=== PATIENT | female | born 2005 | race Caucasian/White ===

== ENCOUNTER 2025-01-26 12:13 | Emergency (ER) | payer BC, SELFPAY ==
--- NOTE | ~2025-01-26 | US_ITS ---
EXAMINATION: US pelvic complete w TV INDICATION: Ovarian cyst Comparison:No prior studies for comparison. TECHNIQUE: Multiple transabdominal sonographic images of the pelvis performed. Patient refused transvaginal examination FINDINGS: The uterus measures 6.8 x 3.7 x 2.4 cm. The endometrial complex measures 6 mm. The right ovary is obscured by bowel. There is a possible cyst deep in the pelvis, although not well delineated. The left ovary is unremarkable measuring 3 x 2.4 x 1.7 cm. There is no free fluid in the pelvis. There are no abnormal masses seen on either side. IMPRESSION: 1. Possible right ovarian cyst, although this area is obscured by bowel content. Otherwise, unremarkable pelvic ultrasound. Reviewed, dictated and finalized at location O. IMPRESSION: 1. Possible right ovarian cyst, although this area is obscured by bowel content . Otherwise, unremarkable pelvic ultrasound.
--- NOTE | ~2025-01-26 | CT_ITS ---
EXAMINATION: CT abdomen pelvis w con DATE: 01/26/2025 13:39 INDICATION: Abdomen pain with diarrhea TECHNIQUE: Computed tomography (CT) of the abdomen and pelvis was performed with 100 cc Omnipaque 350 intravenous contrast. The dose-length product was 312.82 mGy-cm. Automated exposure control and iterative reconstruction technique were employed. COMPARISON: None. FINDINGS: Lung bases are unremarkable. No significant pleural or pericardial effusion. Heart size normal. The liver, spleen, pancreas, adrenal glands and kidneys are unremarkable. Gallbladder is present. Normal appendix. There is a right adnexal cyst posteriorly measuring 4.1 x 3.7 cm. No free air. IMPRESSION: 1. Right adnexal cyst, possibly ovarian measuring 4.1 cm. Reviewed, dictated and finalized at location O.
[2025-01-26 12:24] VITALS: BP 107/64; PULSE 84; RESP 16; TEMP 36.8; O2SAT 98
--- OUTSIDE RECORDS SUMMARY | 2025-01-26 13:00 | XMS_ITS | Clinical Summary ---
Author Organization [facility] Address [address] [place] [address] Care Team Providers Care Latent Print Examiner Name Role Phone Krystyna Collins MD Primary Care Pro vider Allergies No known active allergies Medications drospirenone-ethi nyl estradioL (Miranda, 28,) 3-0.02 mg per tabletIndications :Encounter for surveillance of other contraceptive Take 1 tablet by mouth daily 84 tablet 4 4 025 Active etonogestreL (NEXPLANON) 68 mg implantIndication s: Contraception by subdermal route Active fluconazole (DIFLUCAN) 150 mg tabletIndications :vulvovaginal yeast Take one 150mg tab PO and repeat in 72 hours X 1 2 tablet 5 Active Additional Information Patient not taking.Reported on 10/09/2024 Active Problems Problem Noted Date Diagnosed Date Vulvar burning 05/15/2024 Assessment & Plan (05/15/2024 11:59 AM DIE MAKER ELECTRONIC): Patient notes significant change of symptoms within the last month Having burning, pain and irritation Denies any changes to vulvar care routine Vaginitis panel collected to rule out infection Also discussed possible use of steroid cream in area for treatment after infection is ruled out Contraceptive surveillance 01/21/2023 Assessment & Plan (04/18/2024 9:05 AM DIE MAKER ELECTRONIC): On both Nexplanon and Miranda Discussed discontinuing one as both as not necessary. Patient likes having periods every month as reassurance, discussed considering taking the nexplanon out. Other option is to stop the OCPs to see what her bleeding is like without them and just on the nexplanon Assessment & Plan (01/21/2023 1:26 PM CDT): On Nexplanon for contraception and Miranda for breakthrough bleeding. Refilled Miranda prescription. 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 Assessment & Plan (05/15/2024 12:01 PM DIE MAKER ELECTRONIC): Discussed anatomy and area of hypertrophy Discussed burning symptoms area separate from area of hypertrophy and therefore patient would likely not benefit from surgical correction Discussed labiaplasty surgery including risks and benefits Discussed if conservative measures did not improve symptoms, surgery is reasonable, but outside of the last month patient is not otherwise bothered by anatomy Offered patient referral to plastic surgery for consultation as well Assessment & Plan (09/08/2022 3:40 PM CDT): - Discussed normal anatomy from her exam last week. - Discussed options for labiaplasty, although this could lead to chronic pain, decreased sensation, etc. - Patient would like to contemplate this Dysuria 09/07/2022 Assessment & Plan (09/08/2022 3:38 PM CDT): - Discussed recommendations for referral to Urology Assessment & Plan (09/07/2022 5:24 PM CDT): - Discussed normal anatomy today on exam. - Reviewed plan for STD testing today - Recent UCx negative and she has had many negative UCx in the past with similar symptoms. - Discussed plan to trial 2 doses of fluconazole due to some erythema around urethra and white discharge. Reviewed trial of application of cocnut oil to the area. - Will have her RTC in 1 week to check in on symptoms. Considering possible IC due to symptoms Nexplanon in place 09/07/2022 Assessment & Plan (09/07/2022 5:25 PM CDT): - Due for removal and replacement 10/2022. - Due to me leaving will have patient RTC earlier for removal and replacement. - Also on OCPs in addition as had irregular bleeding with nexplanon Anemia 06/16/2020 Assessment & Plan (10/21/2021 12:00 PM CDT): - plan to obtain CBC/ferritin today - discussed that helping to see improvement in her labs in the setting of her bleeding becoming less with each cycle. - if ferritin remains low would recommend an iron infusion for patient as she has previously not tolerated oral iron. Assessment & Plan (09/10/2020 9:21 PM CDT): - Ferritin recently 6 on labs from 06/16/20 - Patient taking iron supplementation over last 3 months - Discussed plan to obtain repeat CBC and Iron panel today. Assessment & Plan (06/16/2020 7:18 PM DIE MAKER ELECTRONIC): - Reported history of anemia and feelings of fatigue when on cycle and now with irregular bleeding. - Discussed plan to obtain CBC/Ferritin today. - Reviewed use of oral Iron Irregular menstrual bleeding 06/16/2020 Assessment & Plan (10/21/2021 11:59 AM CDT): - patient was initially seen for irregular bleeding and cramping with her Nexplanon in place. - she is currently on Lutera on top of her Nexplanon and is happy with her bleeding profile - she would like to keep the Nexplanon in place for contraceptive reasons as she is worried about missing pills here and there for the control - discussed recommendation to continue Lutera and Nexplanon at this time. - refill for Lutera sent to pharmacy on file - patient will need a visit for removal and replacement of her Nexplanon in 10/2022. Assessment & Plan (09/10/2020 9:20 PM CDT): - Patient with Nexplanon in place since 11/2019 with irregular bleeding. - She was prescribed LoLo which helped lighten her bleeding and helped with her menstrual cramps, although she would like to have less irregular bleeding. - Reviewed options moving forward including trial of a higher dose of OCP with nexplanon in place, removal of nexplanon and placement/trial of a different form of control. - Patient would like to try a higher dose OCP at this time as she reports that she feels comfortable knowing that the Nexplanon is in place for contraception. - Rx provided for Lutera and patient to RTC in 2 months to evaluate bleeding. Assessment & Plan (06/16/2020 7:22 PM DIE MAKER ELECTRONIC): - Discussed that this is likely due to her nexplanon as cycles were regular before this was placed. - We reviewed a trial of OCPs x 3 months to see if this can help stabilize the endometrium and may help with her dysmenorrhea. - We also reviewed other options for LARCs as she reported she has a hard time remembering to take medication daily and likes that she does not have to worry about getting with her nexplanon in place. - Rx provided for LoLo OCP and Plan to follow-up in 3 months Surgical History Surgery Date Site/Laterality Comments NO PAST SURGERIES Medical History Medical History Date Comments DANIEL (iron deficiency anemia) Family History Medical History Relation Name Comments No Known Problems Father No Known Problems Mother Breast cancer Neg Hx Cervical cancer Neg Hx Colon cancer Neg Hx Ovarian cancer Neg Hx Uterine cancer Neg Hx Relation Name Status Comments Father Mother Social History Tobacco Use Types Packs/Day Years Used Date Smoking Tobacco: Never Smokeless Tobacco: Never Tobacco Cessation:Counseling Given: Not Answered Alcohol Use Standard Drinks/Week Comments Never 0 (1 standard drink = 0.6 oz pur e alcohol) Humiliation, Afraid, Rape, and Kick questionnair e Answer Date Recorded Within the last year, have y ou been afraid of your partner or ex-partner? No 11/15/2019 Within the last year, have y ou been humiliated or emotionally abused in other ways by your partner or ex-partner? No Within the last year, have y ou been kicked, hit, slapped, or otherwise physically hurt by your partner or ex-partner? No 11/15/2019 Within the last year, have y ou been raped or forced to have any kind of sexual activity by your partner or ex-partner? No 11/15/2019 AUDIT-C Answer Date Recorded Q1: How often do you have a drink containing alc ohol? Never 11/15/2019 Average Number of Drinks Not on file 020 Frequency of Binge Drinking Not on file 10/31 Exercise Vital Sign Answer Date Recorde d On average, how many days pe r week do you engage in moderate to strenuous exercise (like a brisk walk)? 0 days 11/15/2019 On average, how many minutes do you engage in exercise at this level? 0 min 11/15/2019 Comments No Sex and Gender Information Value Date Recorded Sex Assigned at Not on file Legal Sex Female 11:29 PM DIE MAKER ELECTRONIC Gender Identity Female 04/12/2024 12:35 PM DIE MAKER ELECTRONIC Sexual Orientation Not on file Obstetrics History Para Term AB IAB SAB Ectopic Multiple Livin g Live Births 0 0 0 0 0 0 0 0 0 0 0 Last Filed Vital Signs Vital Sign Reading Time Taken Comments Blood Pressure 118/74 10/09/2024 9:26 AM CDT Pulse 79 10/09/2024 9:26 AM CDT Temperature - - Respiratory Rate - - Oxygen Saturation 99% 10/09/2024 9:26 AM CDT Inhaled Oxygen Concentration - - Weight 65.1 kg (143 lb 9.6 oz) 10/09/2024 9:26 A M CDT Height 167.6 cm (5' 6) 10/09/2024 9:26 AM CDT Body Mass Index 23.18 10/09/2024 9:26 AM CDT Plan of Treatment Health Maintenance Due Date Last Done Comments Depression Screening 2005 Hepatitis C Screening 2005 HPV Vaccines (1 - 3-dose series) 2018 Meningococcal B Vaccine (1 o f 2 - Standard) 2019 Chlamydia and Gonorrhea (GC/ CT) Screening 09/01/2023 08/31/2022 DTaP/Tdap/Td Vaccine (7 - Td or Tdap) 02/07/2024 02/06/2014, 04/10/2008, 10/22/2004, Additional history exists Influenza Vaccine (#1) 2025 02/06/2009 Cervical Cancer Screening 10/09/2025 10/09/2024 Regular Well Visit/Exam 18-64 10/09/2025 10/09/2024 Hepatitis B Screening Completed 2003 , 2003, 2003, Additional history exists Pneumococcal vaccine <65 Completed 005, 2003, 2003, Additional history exists Varicella Vaccines Completed 04/10/2008, 04/16/2005 Meningococcal Vaccine Completed 01/12/2021, 015 Procedures Procedure Name Priority Date/Time Associated Diagnosis Comments PAP WITH REFLEX TO HIGH RISK HPV Routine 10/09/2024 9:51 AM CDT Screening for cervical cancer Screening for HPV (human papillomavirus) N. GONORRHOEAE/C. TRACHOMATIS AMPLIFICATION Routine 08/31/2022 6:35 PM CDT Screening for STDs (sexually transmitted diseases) from Last 3 Months or Most Recently Relevant to Health Maintenance Results * Pap with reflex to High Risk HPV and Genotyping (Cytology Component) (10/09/2024 9:51 AM CDT) Thin prep (Pap test) 10/09/2024 9:51 AM CDT 10/10/2024 8:24 AM CDT Narrative PATHOLOGY [facility] - 10/12/2024 1:20 PM CDT [facility] results best viewed via link to PDF [address] [address] Tele: Opal Romero MD - [employer] CYTOLOGY REPORT Note to Patients: This report may contain a detailed description of human tissue sent by a health care provider to the laboratory for pathologic evaluation. The content of this report is essential for diagnosis and may provide important critical findings. This information may be unfamiliar to patients to review without a medical professional present. It is advised that the patient review this report in the presence of a health care provider who can answer questions and explain the details. Patient Name: MEGAN LEA Address: [address] [place] [address] Gender: F : 2005 (Age: 19) Service: Location: [facility] : [id number] [facility] #: [id number] Patient Type: [facility] SPECIMEN Taken: 10/09/2024 Reported: 10/12/2024 Physician(s): Debby Castelan MD FINAL DIAGNOSIS: SOURCE OF SPECIMEN - ThinPrep Pap w/ reflex HPV: STATEMENT OF ADEQUACY Source: Cervical/Endocervical - Satisfactory for interpretation - Endocervical /Transformation Zone component present - Case screened using computer assisted imaging technology and manually re- screened by a shank rander. GENERAL CATEGORIZATION: - Negative for intraepithelial lesion or malignancy cad/10/12/2024 13:20Izabela Ellis M.S., MARY GRACE (ASCP) Report Reviewed and Electronically Signed By Izabela Ellis M.S., MARY GRACE (ASCP)Clerical Data Follow A; [id number] CLINICAL DIAGNOSIS AND HISTORY Last Menstrual Period: 09/23/2024 REPORT IMAGES AND/OR SCANNED DOCUMENTS ONLY VIEWABLE IN PDF FORMAT The Pap test is a screening test used to aid in the detection of cervical cancer and its precursors. It should not be the sole means by which malignant and premalignant lesions are diagnosed. Both false negative and false positive results may occur. It also has poor sensitivity for the detection of endometrial lesions and should not be used to evaluate suspected endometrial abnormalities. For these reasons it is most important to obtain Pap tests at regular intervals, as recommended by your physician or nurse practitioner. Frozen section, operating room consultation, gross examination and dissection, and case sign out may have been performed in part or completely in the following laboratories: [facility], [facility], [place], [place] [address] [place] [address], [address] [place] [id number]. us Debby Castelan MD LAB CYTOLOGY ORDERABLES Fi nal Result Performing Organization Address City/[facility]/ZIP Co de Phone Number PATHOLOGY [facility] Laboratory Receiving [address] [place] [address] * N. gonorrhoeae/C. trachomatis Amplification Urine (08/31/2022 6:35 PM CDT) C. trachomatis Not Detected Not Detected [facility] N. gonorrhoeae Not Detected Not Detected [facility] Comment: Testing performed by the [facility]. This assay detects Chlamydia trachomatis and Neisseria gonorrhoeae by nucleic acid amplification testing (NAAT). This test is approved by the [facility] Food and Drug Administration and the performance characteristics have been verified by the laboratory. The performance characteristics of this test have not been evaluated in women or individuals less than 16 years of age. Urine (None) 08/31/2022 6:35 PM CDT 08/31/2022 6:40 PM CDT Richelle Argueta MD LAB MICROBIOLOGY - GENER AL ORDERABLES Final Result Performing Organization Address City/[facility] Co de Phone Number [facility] [address] Department [place] [address] from Last 3 Months or Most Recently Relevant to Health Maintenance Insurance [place] Care Teams Latent Print Examiner Relationship Specialty Start Date End Date Krystyna Collins MD PCP - General 12/11/14
--- OUTSIDE RECORDS SUMMARY | 2025-01-26 13:00 | XMS_ITS | Clinical Summary ---
Author Organization [facility] Address [address] [place] [address] Care Team Providers Care Teleradiologist Name Role Phone Krystyna Collins MD Primary Care Provider [phone] Source Comments [facility],non-owned Affiliates and Associated Physician Practices is amultiple site organization consisting of ambulatory clinics and hospital sitesin [place], [place], [place] and [place]. This disclosure is being madepursuant to the Care Everywhere program and may not contain all information available regarding this patient. Last updated [email or web address].[email or web address] [facility] Allergies No known active allergies Medications * Be aware that medications may not be up to date on this document. Alwaysverify current medications with the patient. levonorgestrel-e thinyl estradiol 0.1-20 MG-MCG tablet Take 1 tablet by mouth once daily 09/10/2020 Active Active Problems Problem Noted Date Diagnosed Date Anemia 06/16/2020 Overview (12/11/2020): Last Assessment & Plan: - Ferritin recently 6 on labs from 06/16/20 - Patient taking iron supplementation over last 3 months - Discussed plan to obtain repeat CBC and Iron panel today. Irregular menstrual bleeding 06/16/2020 Overview (12/11/2020): Last Assessment & Plan: - Patient with Nexplanon in place since [...] RTC in 2 months to evaluate bleeding. Social History Tobacco Use Types Packs/Day Years Used Date Smoking Tobacco: Never Smokeless Tobacco: Never Comments:Non smoking househo ld Comments No Sex and Gender Information Value Date Recorded Sex Assigned at Not on file Legal Sex Female 11:24 AM CDT Gender Identity Not on file Sexual Orientation Not on file Last Filed Vital Signs Vital Sign Reading Time Taken Comments Blood Pressure 108/68 12/11/2020 11:19 AM CDT Pulse 88 12/11/2020 11:19 AM CDT Temperature 37.5 C (99.5 F) 12/11/2020 11:19 AM CDT Respiratory Rate 16 12/11/2020 11:19 AM CDT Oxygen Saturation 99% 11/30/2017 11:09 AM CDT Inhaled Oxygen Concentration - - Weight 61.2 kg (135 lb) 12/11/2020 11:19 AM CDT Height 170.2 cm (5' 7) 12/11/2020 11:19 AM CDT Body Mass Index 21.14 12/11/2020 11:19 AM CDT Plan of Treatment Health Maintenance Due Date Last Done Comments HIV SCREENING 2018 HPV VACCINE (1 - 3-dose series) 2018 CHLAMYDIA/GONORRHEA SCREENING 2019 MENINGOCOCCAL (Group B) VACC INE SHARED DECISION-MAKING (1 of 2 - Standard) 2019 HEPATITIS C SCREENING 03/28/2021 DTAP/TDAP/TD VACCINES (1 - Tdap) 2022 HEPATITIS B VACCINE (1 of 3 - 19+ 3-dose series) 2022 DEPRESSION SCREENING 05/03/2024 COVID-19 VACCINE (1 - 2023-2 5 season) 2025 INFLUENZA VACCINE (#1) 2025 ZOSTER VACCINE (1 of 2) 2053 HIB VACCINE Aged Out No longer eligi ble based on patient's age to complete this topic MENINGOCOCCAL GROUPS A/C/Y/W VACCINE Aged Out No longer eligible b ased on patient's age to complete this topic PNEUMOCOCCAL VACCINE Aged Out No long er eligible based on patient's age to complete this topic Care Teams Teleradiologist Relationship Specialty Start Date End Date Krystyna Collins MD [address] [address] PCP - General Pediatrics 11/30/17
[2025-01-26 13:01] LABS: BEDSIDEPREGUCG Negative (Negative)
[2025-01-26 13:05] LABS: Hematocrit 38.8 % (37.0-47.0); Hemoglobin 12.5 g/dL (12.0-15.0); Immature Granulocyte Percent A 0.2 % (0-0.5); Lymphocytes Absolute Auto 0.45 K/mm3 (0.9-3.2); Mean Corpuscular HGB Conc 32.2 g/dl (32-36); Mean Corpuscular Hemoglobin 27.2 pg (26-34); Mean Corpuscular Volume 84.5 fl (80-100); Nucleated Red Blood Cells Absolute Auto 0.000 K/mm3 (0.0-0.012); Nucleated Red Blood Cells Perc 0.0 % (0.0-0.2); Platelet Count Result 205 k/mm3 (150-375); Red Blood Count 4.59 M/mm3 (4.2-5.4); White Blood Count 10.5 K/mm3 (4.5-10.0)
--- NOTE | 2025-01-26 13:10 | ECG_ITS ---
Test Date: 2025-01-26 13:24:28 Measurements Intervals Ona Rate: 84 P: 52 AK: 153 QRS: 60 QRSD: 94 T: 33 QT: 346 QTc: 411 Interpretive Statements SINUS RHYTHM POSSIBLE RIGHT VENTRICULAR CONDUCTION DELAY [RSR (QR) IN V1/V2] No previous ECG available for comparison Electronically Signed On 01-26-2025 20:05:12 CDT by Frannie Loco M.D.
[2025-01-26 13:11] LABS: Add Urine Microscopic? YES; Appearance Urine Cloudy (Clear); Glucose Urine UA Negative (Negative); Leukocyte Esterase Ur 2+ LEU/UL (Negative); Nitrate Urine Negative (Negative); Specific Grav Ur 1.027 (1.001-1.035)
--- NOTE | 2025-01-26 13:11 | ED_ITS ---
HPI - Abdominal Pain General Chief Complaint: Abdominal Pain Stated Complaint: Syncope Time Seen by Provider: 01/26/25 12:42 Source: patient Mode of arrival: EMS Limitations: no limitations History of Present Illness HPI narrative: This is a 19-year-old female that presents to the emergency department for lower abdominal pain. Reports associated vomiting and diarrhea. She reports while she was getting her hair cut today she started to feel lightheaded and passed out. Denies chest pain, shortness of breath, palpitations, dysuria, hematuria. Related Data Allergies Allergy/AdvReac Type Severity Reaction Status Date / Time No Known Allergies Allergy Verified 01/26/25 12:27 Review of Systems 2 Review of Systems: All systems reviewed & are unremarkable except as noted in HPI and below PMFSH Past Medical History Medical History (Updated 01/26/25 @ 16:14 by Dyana Frey PA-C) No active medical problems Exam 2 Narrative: GENERAL: Well-appearing, well-nourished, and in no acute distress. HEAD: Normocephalic, atraumatic. EYES: EOMI. CHEST: Clear to auscultation. No respiratory distress. No wheezes rales or rhonchi HEART: Regular rate and rhythm. No murmur heard. Normal peripheral pulses. ABDOMEN: Soft, nontender, nondistended, normal active bowel sounds. No CVA tenderness EXTREMITIES: Normal range of motion. No edema. SKIN: Warm, dry, no rash. NEURO: No focal deficits. Alert and oriented x3. PSYCH: Normal mood and affect Course Course Emergency Course: patient and family updated on workup. Will send oral antibiotic to the pharmacy if any urinary symptoms develop, or await culture results. patient is refusing transvaginal ultrasound at this time for further evaluation of her ovarian cyst. Reports she would feel more comfortable getting this done with her senior software development engineer Vital Signs Vital signs: Vital Signs Temperature 98.2 F 01/26/25 12:24 Pulse Rate 84 01/26/25 12:24 Respiratory Rate 16 01/26/25 12:24 Blood Pressure 107/64 01/26/25 12:24 Pulse Oximetry 98 01/26/25 12:24 Temperature 98.2 F 01/26/25 12:24 Pulse Rate 84 01/26/25 12:24 Respiratory Rate 16 01/26/25 12:24 Blood Pressure 107/64 01/26/25 12:24 Pulse Oximetry 98 01/26/25 12:24 MDM - Abdominal Pain MDM Narrative Medical decision making narrative: Patient presents to the emergency department for lower abdominal pain, diarrhea. Also reporting a syncopal episode while getting her hair cut. She is afebrile and nontoxic appearing. Her vitals are stable. CBC with mild leukocytosis to 10.5. Metabolic panel without concerning findings. Urine with 21-50 white blood cells, also squamous epithelial cells. Patient does not any urinary symptoms. This is sent for culture. CT abdomen and pelvis showing a right adnexal cyst, possibly ovarian, 4.1 cm. Pelvic ultrasound obtained for further evaluation, unable to see ovarian cyst as patient refused transvaginal ultrasound. Reports she would feel more comfortable getting this done with her senior software development engineer. I do have low suspicion for ovarian torsion at this time as patient is quite comfortable. [place] syncope risk score very low risk. Instructed to have close follow up with her senior software development engineer. She was given warnings to return to the ER Differential Diagnosis Differential diagnosis: Likely acute appendicitis, calculus of kidney, gastroenteritis and other (UTI, ovarian cyst, ovarian torsion) Lab Data Attestation: I reviewed the patient's lab results. 01/26/25 12:57 01/26/25 12:57 Labs: Lab Results 01/26/25 01/26/25 Range/Units 12:57 12:59 WBC 10.5 H (4.5-10.0) K/mm3 RBC 4.59 (4.2-5.4) M/mm3 Hgb 12.5 (12.0-15.0) g/dL Hct 38.8 (37.0-47.0) % MCV 84.5 (80-100) fl MCH 27.2 (26-34) pg MCHC 32.2 (32-36) g/dl RDW 13.2 (11.5-14.5) % Plt Count 205 (150-375) k/mm3 MPV 10.3 (7.4-10.4) fl Immature Gran % (Auto) 0.2 (0-0.5) % Neut % (Auto) 91.4 H (45.5-73.1) % Lymph % (Auto) 4.3 L (18.3-44.2) % [place] % (Auto) 3.7 (2.6-8.5) % Eos % (Auto) 0.2 (0-4.4) % Baso % (Auto) 0.2 (0.2-1.2) % Lymph # (Auto) 0.45 L (0.9-3.2) K/mm3 Stokes # (Auto) 0.4 (0.1-0.6) K/mm3 Eos # (Auto) 0.0 (0-0.3) K/mm3 Baso # (Auto) 0.0 (0.0-0.1) K/mm3 Abs Immat Gran (auto) 0.02 (0.00-0.031) K/mm3 Absolute Neuts (auto) 9.6 H (1.3-6.7) K/mm3 Absolute Nucleated RBC 0.000 (0.0-0.012) K/mm3 Nucleated RBC % 0.0 (0.0-0.2) % Sodium 134 L (137-145) mmol/L Potassium 3.8 (3.4-5.0) mmol/L Chloride 105 (98-107) mmol/L Carbon Dioxide 20 L (22-30) mmol/L Anion Gap 9 (4-12) mmol/L BUN 17 (7-17) mg/dL Creatinine 0.96 (0.7-1.0) mg/dL Estim Creat Clear Calc 76 ml/min Estimated GFR > 60 (59 - ) Glucose 105 (65-110) mg/dL Calcium 8.9 (8.4-10.2) mg/dL Total Bilirubin 1.0 (0.2-1.3) mg/dL AST 19 (14-36) U/L ALT 10 (6-35) U/L Alkaline Phosphatase 53 (38-126) U/L Troponin I < 0.012 (0.000-0.034) ng/mL Total Protein 7.9 (6.3-8.2) g/dL Albumin 4.4 (3.5-5.1) g/dL Lipase 92 (23-300) U/L Urine Color Yellow (Yellow) Urine Appearance Cloudy H (Clear) Urine pH 7.0 (5.0-9.0) Ur Specific [place] 1.027 (1.001-1.035) Urine Protein 1+ H (Negative) mg/dL Urine Glucose (UA) Negative (Negative) mg/dL Urine Ketones Trace H (Negative) mg/dL Ur Blood (Man) Negative (Negative) Urine Nitrate Negative (Negative) Urine Bilirubin Negative (Negative) Urine Urobilinogen 1.0 (<2.0) mg/dL Leukocyte Esterase Rfl 2+ H (Negative) TERRA/UL Urine RBC 0-2 (0-2) /hpf Urine WBC 21-50 H (0-3) /hpf Ur Squamous Epith Cells Occasional (Few) /hpf Urine Bacteria 2+ H /hpf Urine Casts 3-5 POC Urine HCG, Qual Negative (Negative) Imaging Data Radiologist's impression: ITS Impressions Abdomen/Pelvis CT 01/26/25 13:42 IMPRESSION: 1. Right adnexal cyst, possibly ovarian measuring 4.1 cm. Pelvic/Transvag US 01/26/25 15:08 IMPRESSION: 1. Possible right ovarian cyst, although this area is obscured by bowel content. Otherwise, unremarkable pelvic ultrasound. ECG Data EKG #1: ECG completion date: 01/26/25 normal rate, sinus rhythm, no ST changes and normal QT Critical Care Time Critical Care Time Critical Care Time: No Discharge Plan Discharge Clinical Impression: Abnormal urinalysis Syncope Qualifiers: Syncope type: unspecified Qualified Code(s): R55 - Syncope and collapse Ovarian cyst Qualifiers: Laterality: right Qualified Code(s): N83.201 - Unspecified ovarian cyst, right side Patient Disposition: Home Condition: Stable Instructions: Antibiotic Form, Ovarian Cyst (ED), Syncope (ED) Additional Instructions: Return to the ER if you experience fever, abdominal pain with nausea and vomiting, you are unable to keep down liquids or solids, or any other symptoms that are concerning to you You have an ovarian cyst on the right side. This would be better evaluated with a complete US of your pelvis. You also had some white blood cells in your urine, but with no urinary symptoms we will await culture results. If you have any pain or burning with urination go ahead and start the antibiotic Follow up with your senior software development engineer Patient Language: Albanian Prescriptions: New cefdinir 300 mg capsule 300 mg PO Q12H 7 Days Qty: 14 0RF Follow-up/Referrals: UNKNOWN,DOCTOR [Primary Care Provider]
[2025-01-26 13:16] LABS: Alanine Aminotransferase 10 U/L (6-35); Albumin Level 4.4 g/dL (3.5-5.1); Alkaline Phosphatase 53 U/L (38-126); Anion Gap 9 mmol/L (4-12); Aspartate Amino Transferase 19 U/L (14-36); Bilirubin,Total 1.0 mg/dL (0.2-1.3); Blood Urea Nitrogen 17 mg/dL (7-17); Calcium 8.9 mg/dL (8.4-10.2); Carbon Dioxide 20 mmol/L (22-30); Chloride 105 mmol/L (98-107); Estimated CRCL calculation 76 ml/min; Estimated Glomerular Filt Rate > 60; Glucose 105 mg/dL (65-110); Lipase 92 U/L (23-300); Potassium 3.8 mmol/L (3.4-5.0); Sodium 134 mmol/L (137-145); Total Protein 7.9 g/dL (6.3-8.2)
[2025-01-26] MEDS: SODIUM CHLORIDE 0.9% IV 1,000 ML 999 ML IV CONT (13:29)
[2025-01-26 14:18] LABS: Troponin I < 0.012 ng/mL (0.000-0.034)
== END 2025-01-26 16:36 | disposition home or self-care (01) ==
PROVIDERS: Emergency Medicine; Emergency Provider Physician Assistant
DX: R55 Syncope and collapse (principal); N83.201 Unspecified ovarian cyst, right side; R82.998 Other abnormal findings in urine
CPT/HCPCS: 36415; 74177; 76830; 76856; 80053; 81001; 81025; 83690; 84484; 85025; 87086; 93005; 96360; 99284; J7030; Q9967